=== PATIENT | male | born 1985 | race Caucasian/White ===

== ENCOUNTER 2021-12-24 15:24 | Outpatient (CLI) | payer OTHER, SELFPAY ==
[2021-12-24 21:42] LABS: Albumin* 4.4 g/dL (3.3-5.0); Chloride* 104 mmol/L (96-114); Sodium* 136 mmol/L (135-149)
[2021-12-24 21:43] LABS: Potassium* 4.4 mmol/L (3.6-5.1)
[2021-12-24 21:45] LABS: Alkaline Phosphatase* 57 U/L (40-150); Aspartate Amino Transferase* 20 U/L (12-35); Bilirubin Total* 0.3 mg/dL (0.1-1.5); Carbon Dioxide* 25 mmol/L (20-32); Creatinine* 0.7 mg/dL (0.5-1.5); Estimated Glomerular Filt Rate 122 ml/min; Total Protein* 7.1 g/dL (6.0-8.3)
[2021-12-24 21:46] LABS: Alanine Aminotransferase* 20 U/L (4-50); Blood Urea Nitrogen* 17 mg/dL (5-24); Calcium* 9.5 mg/dL (8.4-10.6); Glucose* 125 mg/dL (60-115)
[2021-12-24 22:00] LABS: C Reactive Protein* < 0.5 mg/dL (0.5-1.0)
[2021-12-26 12:52] LABS: Rheumatoid Factor < 10 IU/mL (0-14)
[2021-12-27 07:42] LABS: HLA-B27 Negative (Negative)
[2022-01-04 15:12] LABS: Prothrombin Time 12.3 sec (12.0-15.5); dRVVT Screen 41 sec (33-44)
== END 2021-12-24 15:25 | disposition home or self-care (01) ==
PROVIDERS: PCP Family Medicine; Visit Provider Family Medicine
DX: M54.9 Dorsalgia, unspecified (principal); M54.6 Pain in thoracic spine
CPT/HCPCS: 80053; 85610; 85613; 85730; 86140; 86431; 86812

== ENCOUNTER 2022-08-07 20:35 | Emergency (ER) | payer OTHER, SELFPAY ==
[2022-08-07 20:39] VITALS: BP 112/77; PULSE 93; RESP 16; TEMP 36.4; O2SAT 99; BMI 24.4
[2022-08-07] MEDS: TETRACAINE 0.5% OPHTH 2 DROP EYE-LEFT (20:55)
--- NOTE | 2022-08-07 21:01 | ED.EYEPROB ---
HPI - Eye Problem General Chief complaint: Eye Problems Stated complaint: possible rust in left eye Time Seen by Provider: 08/07/22 20:37 History of Present Illness HPI Narrative: Pt is a 36 year old gentleman who got a shantell of metal in his left eye yesterday. He did have pain and discomfort which has resolved. Pt still sees a slight defect in the cornea to the left of the midline. Pt has no further discomfort. No change in his vision. Pt has had no mattering or discharge. He is concerned that the corneal change needs further attention. No other issues noted. Related Data Home Medications Medication Instructions Recorded Confirmed omeprazole 40 mg capsule,delayed mg PO DAILY 12/24/21 12/24/21 release Previous Rx's Medication Instructions Recorded cyclobenzaprine 5 mg tablet 5 - 10 mg PO .hs PRN back pain #90 12/24/21 tabs meloxicam 7.5 mg tablet 7.5 - 15 mg PO QDAY #100 tabs 12/24/21 prednisone 20 mg tablet 20 mg PO BID #10 tabs 12/24/21 Allergies Allergy/AdvReac Type Severity Reaction Status Date / Time No Known Allergies Allergy Unknown Verified 12/17/21 12:24 Review of Systems Status of ROS: Reports: 10 or more systems reviewed and unremarkable except as noted in History and below PFSH PFS Medical History GERD (gastroesophageal reflux disease) Thoracic back pain Surgical History History of endoscopy History of vasectomy S/P right knee arthroscopy Status post laparoscopic appendectomy Social History (Updated 12/17/21 @ 12:25 by Inocencia Kowalski) Narrative: Alcohol ingestion- 1-4 drinks/week Marijuana use, episodic Smoker- half pack per day for approximately 13 years Smoking Status: Current every day smoker What tobacco products do you use: cigarettes Smoking packs per day: 0.5 Smoking cigarettes per day: 10.0 Do you use any of these nicotine containing products: None How often do you have a drink containing alcohol: monthly or less AUDIT-C Alcohol total score: 1 Non-prescribed substance use: denies use service: No Exam Narrative: Exam Narrative: EXAM GENERAL: Patient appears comfortable and well. EYES: No scleral icterus. Small corneal abrasion visualized as above with no further foreign material noted. Pt treated with topical tetracaine and eye swept with sterile swab. THYROID: no thyroid nodules or thyromegaly. LYMPH: No supraclavicular or cervical lymphadenopathy. SKIN: Visible skin seen during exam normal or with benign process only. EXT: No dependent lower extremity pedal edema. HEART: Regular rate and rhythm with no murmurs, rubs, or gallops. LUNGS: Clear to auscultation bilaterally with no crackles or wheezes. ABD: Soft, non tender, non distended. PSYCH: Good eye contact, speech is not pressured. Const: Vital Signs, click to edit/add: Vital Signs - 24 hr 08/07/22 20:39 Temperature 97.6 F Pulse Rate [Left P ulse Oximeter] 93 Respiratory Rate 16 Blood Pressure [Le ft Upper Arm] 112/77 Pulse Oximetry 99 Oxygen Delivery Me thod Room Air Course Course Hospital Course: Pt seen and examined. Eye exam as above. Vital Signs Vital signs: Initial Vital Signs Temperature 97.6 F 08/07/22 20:39 Temperature Source Temporal Artery Scan 08/07/22 20:39 Pulse Rate 93 08/07/22 20:39 Pulse Rhythm 08/07/22 20:39 Respiratory Rate 16 08/07/22 20:39 Blood Pressure 112/77 08/07/22 20:39 Blood Pressure Mean 88 08/07/22 20:39 Pulse Oximetry 99 08/07/22 20:39 Oxygen Delivery Method 08/07/22 20:39 Vital Signs Temperature 97.6 F 08/07/22 20:39 Pulse Rate 93 08/07/22 20:39 Respiratory Rate 16 08/07/22 20:39 Blood Pressure 112/77 08/07/22 20:39 Pulse Oximetry 99 08/07/22 20:39 Oxygen Delivery Method 08/07/22 20:39 Temperature 97.6 F 08/07/22 20:39 Pulse Rate 93 08/07/22 20:39 Respiratory Rate 16 08/07/22 20:39 Blood Pressure 112/77 08/07/22 20:39 Pulse Oximetry 99 08/07/22 20:39 Oxygen Delivery Method 08/07/22 20:39 MDM - Eye Problem MDM Narrative Medical decision making narrative: Pt presents one day after a shantell of metal landed in his left eye. Eye anesthetized and examined. Corneal abrasion noted. No further pathology. Pt offered reassurance and close follow up. Differential Diagnosis Differential diagnosis: Likely corneal abrasion, conjunctivitis, acute iritis, hyphema, periorbital cellulitis, subconjunctival hemorrhage, corneal ulcer and ruptured globe Discharge Plan Discharge Clinical Impression: Abrasion, corneal Patient Disposition: Home, Self-Care Condition: Stable Instructions: Corneal Abrasion (ED) Additional Instructions: Eye drops as needed Warm compresses Follow up with Optometry as needed Activity Level: No Restrictions Discharge Diet: Regular Prescriptions: No Action omeprazole 40 mg capsule,delayed release(DR/EC) PO DAILY meloxicam 7.5 mg tablet 7.5 - 15 mg PO QDAY Qty: 100 4RF Rx Instructions: everyday medication for back arthritis, take with food prednisone 20 mg tablet 20 mg PO BID Qty: 10 2RF Rx Instructions: use for flares of back pain, keep on hand cyclobenzaprine 5 mg tablet 5 - 10 mg PO .hs PRN (Reason: back pain) Qty: 90 4RF Follow Up/Referrals: Mariela Mendoza MD [Primary Care Provider] - Stand Alone Forms: [employer] Info Instructions
--- NOTE | 2022-08-07 21:18 | ED.NURSE ---
Patient did not have a record of Tdap in [facility]. When asked about updating his tetanus, he stated I know I had one recently after a spider bite. He declined to have another.
== END 2022-08-07 21:19 | disposition home or self-care (01) ==
LOC: ED 21:18
PROVIDERS: Emergency Provider Internal Medicine
DX: S05.02XA Injury of conjunctiva and corneal abrasion without foreign body, left eye, initial encounter (principal)
CPT/HCPCS: 99282; 99283